=== PATIENT | male | born 1930 | race Caucasian/White ===

== ENCOUNTER → 2017-07-06 | Outpatient (CLI) | payer MEDICARE, OTHER ==
[~2017-07-06] MED LIST: ASPI81 PO; GLUC500C56 PO; LEVO25TA36 PO; RANI150 PO; TAB-TAB PO; TERA5CAP34 PO
[2017-07-06 10:30] LABS: HEMATOCRIT 39.6 % (39.0-51.0); MEAN CELL VOLUME 91.8 FL (80.0-100.0); MEAN CORPUSCULAR HEMOGLOBIN 31.4 PG (27.0-34.0); MEAN CORPUSCULAR HGB CONC 34.2 % (32.0-36.0); PLATELET COUNT 219 TH/MM3 (150-450); RED BLOOD COUNT 4.31 MIL/MM3 (4.50-5.90); RED CELL DISTRIBUTION WIDTH 13.4 % (11.6-17.2); REVIEW FLAG FINAL; WHITE BLOOD COUNT 5.5 TH/MM3 (4.0-11.0)
--- NOTE | 2017-07-06 10:39 | EKG ---
Date Performed: 07/06/2017 Time Performed: 09:24:50 PTAGE: 87 years EKG: Sinus bradycardia. Left anterior fascicular block Borderline ECG NO PREVIOUS TRACING DOCTOR: Cheo Cohen Interpretating Date/Time 07/06/2017 10:37:17
[2017-07-06 10:50] LABS: POTASSIUM 3.9 MEQ/L (3.5-5.1)
== END ==
LOC: HCAV 09:17
PROVIDERS: ATTEND Orthopaedic Surgery
DX: Z01.810 Encounter for preprocedural cardiovascular examination (principal)
CPT/HCPCS: 36415; 80048; 85027; 93005